=== PATIENT | female | born 1985 | race Caucasian/White ===

== ENCOUNTER 2021-11-13 21:41 | Observation (INO) | payer MEDICAID, SELFPAY ==
[2021-11-13] VITALS (8 sets, daily range): BP systolic 146–154; BP diastolic 84–94; PULSE 81–100; RESP 14–27; TEMP 36–36.6; O2SAT 94–100; BMI 34.9
--- NOTE | 2021-11-13 21:45 | EDS_ITS ---
HPI History of Present Illness Chief Complaint: Unresponsive Narrative Narrative: 36-year-old female presents by EMS. She was at the [place] in [place] and was not feeling right. She apparently had an argument with her boyfriend and the [place] he was at the fair for about 30 minutes prior to calling EMS. She reported to EMS that she was just not feeling right for the last couple of days. She had had some shortness of breath and some chest discomfort. She states to EMS that she just feels off. She reportedly took a Xanax prior to coming out of the stands to see EMS. Patient has a history of seizure disorder and is on unknown medication for this. Patient reported EMS that she took about 53 medications. EMS was transporting her and she was alert, awake, talking and then she went unresponsive. They did not have to bag her and she did appear to have respiratory drive. Patient has a tracheostomy and a PEG tube. Apparently she was at the fair yesterday as well and decided to come back. [facility] Medical History Anomaly of diaphragm Anxiety Arrhythmia Asthma Bacteremia Cerebral atrophy Chronic respiratory failure Depression Drug-seeking behavior Gastrointestinal tube present Gastroparesis GERD (gastroesophageal reflux disease) Mitochondrial complex 3 deficiency Mitochondrial disease MRSA (methicillin resistant Staphylococcus aureus) Neurogenic bladder Opioid dependence Pancreatitis PCOS (polycystic ovarian syndrome) Pulmonary embolism Seizure Tracheostomy in place Allergy/AdvReac Type Severity Reaction Status Date / Time bee venom protein (honey bee) Allergy Anaphylaxis Verified 11/13/21 23:41 propofol Allergy PT UNSURE Verified 11/13/21 23:41 OF REACTION Hemyryd-[id number]-YcR Reductase Allergy PT UNSURE Verified 11/13/21 23:41 Inhibitor OF REACTION valproic acid Allergy PT UNSURE Verified 11/13/21 23:41 OF REACTION vancomycin Allergy Itching Verified 11/13/21 23:41 Social History Smoking Status: Never smoker ROS ROS ED Review of Systems ROS Unobtainable: due to mental condition and due to mental status EXAM Physical Exam Const Vital Signs: 11/13/21 21:42 11/13/21 21:46 11/13/21 21:58 Temperature 97.8 F 97.9 F Temperature Source Temporal Temporal Pulse Rate 89 100 Respiratory Rate 16 20 H Blood Pressure 154/84 H 154/84 H Blood Pressure Mean 107 107 Pulse Ox 94 95 99 Oxygen Delivery Method Room Air Room Air Room Air 11/13/21 21:59 11/13/21 22:14 11/13/21 22:30 Temperature 97.9 F Temperature Source Temporal Pulse Rate 90 83 83 Respiratory Rate 20 H 27 H 16 Blood Pressure 150/87 H 152/91 H 147/88 H Blood Pressure Mean 108 111 107 Pulse Ox 99 100 100 Oxygen Delivery Method Room Air Room Air Room Air 11/13/21 23:00 11/13/21 23:39 11/13/21 23:39 Temperature 96.8 F L 96.8 F L Temperature Source Temporal Temporal Pulse Rate 81 88 82 Respiratory Rate 16 14 14 Blood Pressure 146/87 H 151/94 H 151/94 H Blood Pressure Mean 106 113 113 Pulse Ox 100 100 99 Oxygen Delivery Method Ambu-Bag Room Air Room Air Positive obese Constitutional Narrative: Not responding to voice or sound General Appearance ED: Negative for cyanotic, diaphoretic or pallor Nutritional Appearance: obese HEENT Reports moist mucous membranes HEENT Narrative: Tracheostomy tube noted and is patent Negative for trauma Eyes PERRL and EOMs intact bilaterally General Eye ED: Negative for pale conjunctiva or scleral icterus Chest Wall inspection of chest normal and palpation of chest normal Resp normal respiratory effort and clear to auscultation bilaterally Auscultation: Negative for rales, rhonchi or wheezes Cardio regular rate and regular rhythm GI normal to inspection, nondistended, normoactive bowel sounds GI Narrative: Feeding tube noted in the left upper abdominal wall Neuro Sensorium / Orientation: stuporous Skin no rashes or lesions noted and no wounds General Skin Exam: Negative for jaundice or pallor MDM MDM MDM Narrative Medical decision making narrative: On initial assessment the patient is not responding to voice or touch. Her vital signs are stable. She was initially being bagged through her tracheostomy but we stopped doing this and she was breathing on her own without any distress. Heart rate was 89, respirate 16, temperature 97.8 O2 sat 94% on room air. Breathing was nonlabored. Blood sugar was 101. As I went to put in orders nursing staff states that they were seeing if she would respond to pain and while doing so the patient sat up and took a big gasp of air and was alert and oriented x3. I went back to assess the patient and she is alert and talking. She is very coherent. She states she was at the [place] yesterday [place] [employer] and decided to come back. She states that she has just been feeling off for 3 days. She states that she has had chest pain which has been constant for 3 days and it radiates to the back although this is not a new problem for her. She also complains of left lower quadrant abdominal pain. I did note that she had been seen twice in the last month both on the on the and had CTs of the abdomen pelvis done at [facility] in either both normal. Patient is anticoagulated on Coumadin for history of A. fib. She states she has a history of asthma, anxiety. She also discusses a lot about having a mitochondrial respiratory chain complex. She sees a respiratory specialist and has an appointment for tomorrow. She has a tracheostomy and states she wears a ventilator a couple hours a day and again at night when she sleeping because she gets so tired. She states that she was feeling tired today and requested her to boyfriend bring the wheelchair [place] the [place] but he did not. Given that she sat up out of bed and was not postictal I do not think she had a seizure. Has no sign of head trauma and no history of this. Nobody witnessed any seizure-like activity. She does admit to a history of seizure disorder. I reviewed her medical record and it appears that she does have opioid dependence and has history of malingering. She did request some pain medicine but I told her that since she was just unresponsive I do not think this would be murphy. I did obtain an EKG which on my interpretation shows a sinus rhythm with a ventricular rate of 97 bpm without sign of ischemic change. OH interval 124 ms, QRS duration 88 ms, QTC 487. CBC shows a slight extension of 12.8. Hemoglobin stable at 10.3 and she seems to have a range between 10 and 11 on this. Platelets normal at 273. INR is subtherapeutic and she is on Coumadin, however she has no tachycardia, tachypnea, hypoxia and she is under percent on room air except for some episodes where she is transiently hypoxic. I have low suspicion for PE. She keeps waking up and saying it is going to happen again and then stops medicating. He has no seizure activity. I spoke with her boyfriend who is only been with her for 2 weeks and he states he has not witnessed this. He states I am just getting to know her. Patient had multiple episodes in which she would fall asleep and get hypoxic and then wake up with an emergence reaction and start talking. I told her that I had not found anything abnormal in her blood work. I was able to find her last prescriptions which were dated 09/03/2021 on [facility] and there are multiple ED visits and hospitalizations for multiple problems over the last several months which spanned back years. It does appear that she is on digoxin so I did order a level of this. She appears to be on Vimpat as well as Keppra as well. The Vimpat dosing is 100 mg p.o. twice daily but would apparently have been empty by 10/14/2021 patient also has a prescription for Keppra 750 mg p.o. twice daily. I did not see any other antiepileptic medications. Did not find a documentation of her acting this way. Her parents called and stated that she has had this in the past and that she is not allergic to propofol. Apparently they sedate her for a couple days when she is like this. She can cannot tell me what kind of seizures that she has she states that she has 3 different kinds. I did obtain a CT of the brain and this is negative for acute intracranial findings. Chest x- ray my interpretation shows no acute cardiopulmonary process and radiologist agree. Urine drug screen returned positive for MDMA and benzodiazepines however she is prescribed benzodiazepines. After attempting to admit her to the hospital the hospitalist wanted to get an SOC consult which was obtained and the neurologist stated that there would be no benefit from an EEG because he thinks is behavioral. Recommended treat her symptomatically with benzodiazepines or Haldol. Discussed with the hospitalist who wants her placed on a propofol drip for the evening and she will be placed on the vent. Patient stable on admission. Impression: 1. Altered mental status 2. Dyspnea 3. Abdominal pain 4. MDMA abuse 5. Chronic anemia 6. History of seizure disorder Lab Data Attestation: I reviewed the patient's lab results. Labs: Laboratory Results - last 24 hr 11/13/21 11/13/21 11/13/21 21:47 21:47 21:47 WBC 12.8 H RBC 3.52 L Hgb 10.3 L Hct 32.5 L MCV 92.3 MCH 29.3 MCHC 31.7 L RDW Std Deviation 47.9 H RDW Coeff of Mike 14.1 Plt Count 273 MPV 9.2 Immature Gran % (Auto) 0.700 Neut % (Auto) 78.1 H Lymph % (Auto) 13.5 L Clay % (Auto) 7.0 Eos % (Auto) 0.5 Baso % (Auto) 0.2 Absolute Neuts (auto) 10.0 H Absolute Lymphs (auto) 1.72 Nucleated RBC % 0 PT 14.3 INR 1.1 Sodium 138 Potassium 3.8 Chloride 102 Carbon Dioxide 29.0 Anion Gap 7 BUN 11 Creatinine 0.91 Estim Creat Clear Calc 81.51 Est GFR (MDRD) Af Amer 89 Est GFR (MDRD) Non-Af 74 BUN/Creatinine Ratio 12.1 Glucose 105 Calcium 9.0 Total Bilirubin 0.40 AST 17 ALT 42 Alkaline Phosphatase 104 Troponin I High Sens Total Protein 7.5 Albumin 3.7 Globulin 3.8 Albumin/Globulin Ratio 1.0 Urine Color Urine Clarity Urine pH Ur Specific [place] Urine Protein Urine Glucose (UA) Urine Ketones Urine Occult Blood Urine Nitrite Urine Bilirubin Urine Urobilinogen Ur Leukocyte Esterase Urine RBC Urine WBC Ur Squamous Epith Cells Urine Bacteria Urine Mucus Urine Opiates Screen Urine Methadone Screen Ur Barbiturates Screen Ur Phencyclidine Scrn Ur Amphetamines Screen MDMA (Ecstasy) Screen U Benzodiazepines Scrn Urine Cocaine Screen U Cannabinoids Screen Ur Drug Screen Comment Ethyl Alcohol 11/13/21 11/13/21 11/13/21 21:47 23:05 23:05 WBC RBC Hgb Hct MCV MCH MCHC RDW Std Deviation RDW Coeff of Mike Plt Count MPV Immature Gran % (Auto) Neut % (Auto) Lymph % (Auto) Clay % (Auto) Eos % (Auto) Baso % (Auto) Absolute Neuts (auto) Absolute Lymphs (auto) Nucleated RBC % PT INR Sodium Potassium Chloride Carbon Dioxide Anion Gap BUN Creatinine Estim Creat Clear Calc Est GFR (MDRD) Af Amer Est GFR (MDRD) Non-Af BUN/Creatinine Ratio Glucose Calcium Total Bilirubin AST ALT Alkaline Phosphatase Troponin I High Sens Total Protein Albumin Globulin Albumin/Globulin Ratio Urine Color Yellow Urine Clarity Clear Urine pH 6.0 Ur Specific [place] 1.015 Urine Protein 30 H Urine Glucose (UA) Normal Urine Ketones Negative Urine Occult Blood Negative Urine Nitrite Negative Urine Bilirubin Negative Urine Urobilinogen Normal Ur Leukocyte Esterase 25 H Urine RBC 0 SEEN Urine WBC 0-5 SEEN Ur Squamous Epith Cells 0-5 SEEN Urine Bacteria RARE Urine Mucus 0 SEEN Urine Opiates Screen NEGATIVE Urine Methadone Screen NEGATIVE Ur Barbiturates Screen NEGATIVE Ur Phencyclidine Scrn NEGATIVE Ur Amphetamines Screen NEGATIVE MDMA (Ecstasy) Screen POSITIVE H U Benzodiazepines Scrn POSITIVE H Urine Cocaine Screen NEGATIVE U Cannabinoids Screen NEGATIVE Ur Drug Screen Comment Ethyl Alcohol < 3.0 11/13/21 23:37 WBC RBC Hgb Hct MCV MCH MCHC RDW Std Deviation RDW Coeff of Mike Plt Count MPV Immature Gran % (Auto) Neut % (Auto) Lymph % (Auto) Clay % (Auto) Eos % (Auto) Baso % (Auto) Absolute Neuts (auto) Absolute Lymphs (auto) Nucleated RBC % PT INR Sodium Potassium Chloride Carbon Dioxide Anion Gap BUN Creatinine Estim Creat Clear Calc Est GFR (MDRD) Af Amer Est GFR (MDRD) Non-Af BUN/Creatinine Ratio Glucose Calcium Total Bilirubin AST ALT Alkaline Phosphatase Troponin I High Sens 3 Total Protein Albumin Globulin Albumin/Globulin Ratio Urine Color Urine Clarity Urine pH Ur Specific [place] Urine Protein Urine Glucose (UA) Urine Ketones Urine Occult Blood Urine Nitrite Urine Bilirubin Urine Urobilinogen Ur Leukocyte Esterase Urine RBC Urine WBC Ur Squamous Epith Cells Urine Bacteria Urine Mucus Urine Opiates Screen Urine Methadone Screen Ur Barbiturates Screen Ur Phencyclidine Scrn Ur Amphetamines Screen MDMA (Ecstasy) Screen U Benzodiazepines Scrn Urine Cocaine Screen U Cannabinoids Screen Ur Drug Screen Comment Ethyl Alcohol Radiography Diagnostic Testing: Clinical Impression(s) from Imaging Studies Brain CT 11/13/21 22:26 IMPRESSION: Normal unenhanced CT scan of the brain. Electronically Signed: Faustino Perry DO at 23:00 EDT Reading Location ID and State: [facility] / [place] Tel , Service support , Chest X-Ray 11/13/21 22:39 IMPRESSION: Trace right effusion Electronically Signed: Faustino Perry DO at 22:58 EDT Reading Location ID and State: [facility] / [place] Tel , Service support , Discharge Plan Triage Chief Complaint: Unresponsive ED Provider: Parish Schrader Dx/Rx/DC Orders Primary Care Provider: Care Physician,No Primary Referrals: [facility] Doctor,Out of [Non-Staff] - Disposition Disposition: Home, Self Care
--- NOTE | 2021-11-13 21:45 | CPS ---
pt was assessed and breathing on own on RA satting 97%
--- NOTE | 2021-11-13 21:46 | EKG12_ITS ---
Test Reason : UNRESPONSIVE Blood Pressure : / mmHG Vent. Rate : 097 BPM Atrial Rate : 097 BPM P-R Int : 124 ms QRS Dur : 088 ms QT Int : 384 ms P-R-T Axes : 047 021 009 degrees QTc Int : 487 ms Normal sinus rhythm Prolonged QT Abnormal ECG Confirmed by RAUL SKY, RICHI ([id number]), general expeditor MAURA HODGES ([id number]) on 11/15/2021 10:09:49 AM Referred By: Confirmed By:RICHI CARTER MD
[2021-11-13 21:59] LABS: Absolute Lymphocyte Count 1.72 X10^3/uL (0.83-4.51); Basophil# 0.03 X10^3/uL; Basophil% 0.2 % (0-1); Eosinophil# 0.06 X10^3/uL; Eosinophils% 0.5 % (0-5); Hematocrit 32.5 % (37-47); Hemoglobin 10.3 g/dL (12.0-15.0); Lymphocyte # 1.72 X10^3/ul (0.83-4.51); Lymphocyte % 13.5 % (19-41); Mean Corp Hgb Conc 31.7 g/dL (32-36); Mean Corpuscular Hgb 29.3 pg (27.0-32.0); Mean Corpuscular Volume 92.3 fL (81-99); Mean Platelet Vol. 9.2 fl (6.2-12.0); NRBC Flagged by Analyzer 0 % (0-5); Neutrophil # 9.97 X10^3/uL (2.7-7.7); Neutrophil % 78.1 % (47-70); Platelet Count 273 K/mm3 (150-450); RBC Distribution Width CV 14.1 % (11.6-14.6); RBC Distribution Width SD 47.9 fl (35.1-43.9); Red Blood Count 3.52 M/mm3 (4.2-5.4); White Blood Count 12.8 K/mm3 (4.4-11.0)
[2021-11-13] MEDS: Ondansetron 4 MG/2 ML Vial IV (22:00)
[2021-11-13] MEDS: 0.9% Normal Saline 1,000 ML 999 ML IV (22:01)
[2021-11-13 22:10] LABS: International Normalized Ratio 1.1; Prothrombin Time (Protime)PT. 14.3 SECONDS (11.7-14.9)
[2021-11-13 22:17] LABS: AST(SGOT) 17 U/L (15-37); Alanine Aminotransfer ALT/SGPT 42 U/L (13-56); Albumin, Serum 3.7 g/dL (3.2-5.0); Alkaline Phosphatase 104 U/L (45-117); Anion Gap 7 (5-15); BUN 11 mg/dL (7-18); BUN/Creat Ratio 12.1 RATIO (10-20); Chloride 102 mmol/L (98-107); Creatinine, Serum 0.91 mg/dL (0.55-1.02); EST Glomerular Filtration Rate 74 mL/min (>60); Est Glom Filt Rate - Afr Amer 89 mL/min (>60); Estimated Creatinine Clearance 81.51 ml/min; Globulin 3.8 g/dL (2.2-4.2); Glucose 105 mg/dL (74-106); Potassium 3.8 mmol/L (3.5-5.1); Protein, Total 7.5 g/dL (6.4-8.2); Sodium Level 138 mmol/L (136-145)
--- NOTE | 2021-11-13 22:26 | CT_ITS ---
STUDY: CT BRAIN WITHOUT CONTRAST REASON FOR EXAM: Female, 36 years old. ams RADIATION DOSAGE (If Supplied By Facility): CTDIvol = ( 44.99 ) mGy, DLP = ( 863.60 ) mGycm TECHNIQUE: Transaxial CT imaging of the brain was performed without administration of intravenous contrast material. Individualized dose optimization techniques were used for this CT. COMPARISON: No relevant priors. FINDINGS: Normal soft tissue structures. Normal calvarium. Normal size ventricles and extra-axial spaces for the patient''s age. Normal white matter tracts of the cerebral hemispheres. Normal basal ganglia and thalami. Normal brainstem. Normal cerebellum. There is no intracranial hemorrhage. There are no findings of an acute ischemic infarction. Normal visualized paranasal sinuses. CT/Brain/Head without Contrast IMPRESSION: Normal unenhanced CT scan of the brain. Electronically Signed: Faustino Perry DO at 23:00 EDT ,
--- NOTE | 2021-11-13 22:39 | RAD_ITS ---
STUDY: X-RAY CHEST REASON FOR EXAM: Female, 36 years old. ams TECHNIQUE: Single AP portable view of the chest. COMPARISON: None. FINDINGS: ET tube or tracheostomy tube terminating 6.2 cm from the luis. Left lung is clear. Trace right effusion with elevated right hemidiaphragm. No pneumothorax. There is mild cardiac enlargement. Normal mediastinum and moi. Normal visualized pulmonary arteries. Normal visualized aortic arch and descending thoracic aorta. Normal visualized thoracic spine. Normal visualized ribs, clavicles, and shoulders. There is no demonstrated abnormality of the visualized soft tissue structures of the upper abdomen. RAD/Chest 1 View (Portable) IMPRESSION: Trace right effusion Electronically Signed: Faustino Perry DO at 22:58 EDT ,
[2021-11-13 22:46] LABS: Alcohol, Blood (Medical)-Serum < 3.0 mg/dL
[2021-11-13 23:09] LABS: Mucous, Urine 0 SEEN /hpf (<or=2+); Red Blood Cells-Urine 0 SEEN /hpf (0-5)
[2021-11-13 23:13] LABS: Color, Urine Yellow (Yellow); Glucose, Dipstick Normal (Normal); Ketone-Dipstick Negative (Negative); Leukocyte Esterase-Dipstick 25 /ul (Negative); Nitrite-Dipstick Negative (Negative); Occult Blood-Urine Negative /ul (Negative); Protein-Dipstick 30 mg/dl (Negative); Specific Gravity, Urine 1.015 (1.002-1.030); Urine Bilirubin Dipstick Negative (Negative); Urine Clarity Clear (Clear); Urine Urobilinogen Normal (Normal)
[2021-11-13 23:20] LABS: Bacteria RARE /hpf (None Seen); Squamous Epithelial Cells - UA 0-5 SEEN /hpf (5-10); White Blood Cells 0-5 SEEN /hpf (0-5)
[2021-11-14] VITALS (31 sets, daily range): BP systolic 106–153; BP diastolic 62–106; PULSE 59–97; RESP 13–22; TEMP 35.8–36.1; O2SAT 95–100; BMI 38.0
[2021-11-14] LABS: Amphetamine Urine VISTA NEGATIVE (<1000 ng/mL); Barbiturate Urine VISTA NEGATIVE (< 200 ng/mL); Benzodiazepine Urine VISTA POSITIVE (< 200 ng/mL); Cocaine Urine VISTA NEGATIVE (< 300 ng/mL); Ecstacy Urine VISTA POSITIVE (< 500 ng/mL); Methadone Urine VISTA NEGATIVE (< 300 ng/mL); PCP Urine VISTA NEGATIVE (< 25 ng/mL); THC Urine VISTA NEGATIVE (< 50 ng/mL); Vista UDS pH Range 5
[2021-11-14 00:13] LABS: Troponin-I HS 3 pg/mL (3.0-54.0)
--- NOTE | 2021-11-14 00:16 | TELEMED_ITS ---
SOC Telemed has confirmed receipt of a request for visit. This document confirms receipt of the order initiating the consult. To find the results of the consultation, please view the patient's reports for the scanned Telemed Consult.
[2021-11-14] MEDS: LORazepam 2 MG/ML Syringe 1 MG IV (00:21)
--- NOTE | 2021-11-14 00:57 | ED.RN ---
Since arriving to ER pt has had multiple episodes where she goes unresponsive and apneic. episodes last a couple of minutes then pt wakes up thrashing around and unsure where she is. Redirected to place and staff. Pt then cooperative and answering questions.
[2021-11-14 01:04] LABS: Digoxin Level 0.64 ng/mL (0.80-2.00)
--- NOTE | 2021-11-14 01:25 | PCM.HP.STD ---
HPI - General General Date of Admission: 11/14/21 Date of Service: 11/14/21 Chief Complaint: altered mental status HPI Narrative MARRY BANEGAS, is a 36 F with a significant history of abnormal of diaphragm; atrial fibrillation mitochondrial complex 3 deficiency; pulmonary embolism; seizure; tracheostomy and PEG tube in place who presents to the emergency department with altered mental status. Patient was at the [facility] when she developed a feeling of malaise. She was brought to the emergency department by paramedics. Reportedly en-route to the hospital she became unresponsive and was assisted with breathing via Ambu bagging. At the emergency department patient had many episodes where even between conversations she stopped conversing become unresponsive hypoxic and thrash in bed. At the emergency department her oxygen saturation went to as low as 70s. Patient reported that this has happened in the past and she gets knocked out for a couple of days and then feels better. So at ED when she was out of these hypoxic and unresponsive episodes she requested to be knocked out. Intermittently she also requested to be discharged home. She reported pain at multiple places of her body including chest, abdomen, back. She also reported dizziness Reportedly she is scheduled to see respiratory specialist on 11/14/2021. Of note at home patient use ventilator as needed. She report that she had respiratory failure and after a while she was trached. She reports gastroparesis leading to colectomy and a GJ tube placement. ON LICENSE OF [facility] Medical History Anomaly of diaphragm Anxiety Arrhythmia Asthma Bacteremia Cerebral atrophy Chronic respiratory failure Depression Drug-seeking behavior Gastrointestinal tube present Gastroparesis GERD (gastroesophageal reflux disease) Mitochondrial complex 3 deficiency Mitochondrial disease MRSA (methicillin resistant Staphylococcus aureus) Neurogenic bladder Opioid dependence Pancreatitis PCOS (polycystic ovarian syndrome) Pulmonary embolism Seizure Home Medications albuterol 90 mcg/actuation aerosol inhaler 2 mcg inhalation Q6H PRN PRN Shortness Of Breath 11/14/21 [History Last Taken Unknown] alprazolam 1 mg tablet 1 mg BID 11/14/21 [History Last Taken Unknown] arformoterol 15 mcg/2 mL solution for nebulization (Brovana) 2 ml inhalation BID 11/14/21 [History Last Taken Unknown] ascorbic acid (vitamin C) 250 mg tablet 250 mg PO BID 11/14/21 [History Last Taken Unknown] budesonide 0.5 mg/2 mL suspension for nebulization 0.5 mg inhalation BID 11/14/21 [History Last Taken Unknown] cetirizine 10 mg tablet 10 mg DAILY 11/14/21 [History Last Taken Unknown] citalopram 40 mg tablet 40 mg DAILY 11/14/21 [History Last Taken Unknown] coenzyme Q10 100 mg capsule (Q-Sorb Co Q-10) 100 mg PO TID 11/14/21 [History Last Taken Unknown] colestipol 1 gram tablet 1 g PO BID 11/14/21 [History Last Taken Unknown] cyclobenzaprine 10 mg tablet 10 mg PO TID 11/14/21 [History Last Taken Unknown] dicyclomine 20 mg tablet 20 mg PO TID 11/14/21 [History Last Taken Unknown] digoxin 125 mcg (0.125 mg) tablet 125 mcg PO DAILY 11/14/21 [History Last Taken Unknown] epinephrine 0.3 mg/0.3 mL injection, auto-injector 0.3 mg IM X1 PRN Anaphylaxis 11/14/21 [History Last Taken Unknown] ergocalciferol (vitamin D2) 1,250 mcg (50,000 unit) capsule 50,000 unit DAILY 11/14/21 [History Last Taken Unknown] fludrocortisone 0.1 mg tablet 0.1 mg PO DAILY 11/14/21 [History Last Taken Unknown] furosemide 40 mg tablet (Lasix) 40 mg PO BID PRN Edema 11/14/21 [History Last Taken Unknown] gabapentin 600 mg tablet 600 mg TID 11/14/21 [History Last Taken Unknown] galcanezumab-gnlm 120 mg/mL subcutaneous pen injector (Emgality Pen) 120 mg subcut QMONTH 11/14/21 [History Last Taken Unknown] hydrocortisone 10 mg tablet 10 mg DAILY 11/14/21 [History Last Taken Unknown] hydroxyzine HCl 25 mg tablet 25 mg TID 11/14/21 [History Last Taken Unknown] lacosamide 100 mg tablet 100 mg BID 11/14/21 [History Last Taken Unknown] levetiracetam 750 mg tablet 1,500 mg PO BID 11/14/21 [History Last Taken Unknown] magnesium oxide 400 mg (241.3 mg magnesium) tablet 400 mg DAILY 11/14/21 [History Last Taken Unknown] metformin 1,000 mg tablet 1,000 mg PO BID 11/14/21 [History Last Taken Unknown] methylphenidate HCl 54 mg tablet,extended release 24 hr (Concerta) 54 mg PO DAILY 11/14/21 [History Last Taken Unknown] midodrine 10 mg tablet 10 mg TID 11/14/21 [History Last Taken Unknown] montelukast 10 mg tablet 10 mg DAILY 11/14/21 [History Last Taken Unknown] pantoprazole 40 mg tablet,delayed release 40 mg PO BID 11/14/21 [History Last Taken Unknown] potassium chloride 20 mEq oral packet (Klor-Con) 20 meq PO BID 11/14/21 [History Last Taken Unknown] prochlorperazine maleate 10 mg tablet (Compazine) 10 mg PO Q6H PRN Nausea 11/14/21 [History Last Taken Unknown] sumatriptan succinate 100 mg tablet 100 mg PO DAILY 11/14/21 [History Last Taken Unknown] trazodone 300 mg tablet 300 mg QHS 11/14/21 [History Last Taken Unknown] verapamil 240 mg tablet,extended release 240 mg PO BID 11/14/21 [History Last Taken Unknown] Allergy/AdvReac Type Severity Reaction Status Date / Time bee venom protein (honey bee) Allergy Anaphylaxis Verified 11/13/21 23:41 [id number] Reductase Allergy PT UNSURE Verified 11/13/21 23:41 Inhibitor OF REACTION valproic acid Allergy PT UNSURE Verified 11/13/21 23:41 OF REACTION vancomycin Allergy Itching Verified 11/13/21 23:41 Family History other other (Patient encephalopathic and unable to provide information) Surgical History H/O colectomy Tracheostomy in place Social History Smoking Status: Never smoker ROS ROS Narrative Pertinent positives and pertinent negatives as noted in HPI. All other systems were reviewed and are negative Vital Signs Vital Signs Vital Signs: 11/13/21 21:42 11/13/21 21:46 11/13/21 21:58 Temperature 97.8 F 97.9 F Temperature Source Temporal Temporal Pulse Rate 89 100 Respiratory Rate 16 20 H Blood Pressure 154/84 H 154/84 H Blood Pressure Mean 107 107 Pulse Ox 94 95 99 Oxygen Delivery Method Room Air Room Air Room Air 11/13/21 21:59 11/13/21 22:14 11/13/21 22:30 Temperature 97.9 F Temperature Source Temporal Pulse Rate 90 83 83 Respiratory Rate 20 H 27 H 16 Blood Pressure 150/87 H 152/91 H 147/88 H Blood Pressure Mean 108 111 107 Pulse Ox 99 100 100 Oxygen Delivery Method Room Air Room Air Room Air 11/13/21 23:00 11/13/21 23:39 11/13/21 23:39 Temperature 96.8 F L 96.8 F L Temperature Source Temporal Temporal Pulse Rate 81 88 82 Respiratory Rate 16 14 14 Blood Pressure 146/87 H 151/94 H 151/94 H Blood Pressure Mean 106 113 113 Pulse Ox 100 100 99 Oxygen Delivery Method Ambu-Bag Room Air Room Air 11/14/21 00:00 11/14/21 00:30 11/14/21 01:00 Temperature Temperature Source Pulse Rate 79 79 Respiratory Rate 16 19 H Blood Pressure 106/68 85/66 L Blood Pressure Mean 80 72 Pulse Ox 100 99 Oxygen Delivery Method Room Air Room Air 11/14/21 01:10 Temperature Temperature Source Pulse Rate Respiratory Rate Blood Pressure 153/96 H Blood Pressure Mean 115 Pulse Ox Oxygen Delivery Method Weight Weight: 101.4 kg Body Mass Index (BMI) 34.9 Physical Exam Narrative Physical exam: General: Well-nourished, well-developed. Head: Normocephalic, atraumatic, no tenderness Eyes: Vision is grossly intact. EOMI ENT: Tracheostomy with trach tube in place. Neck: Nontender, full range of motion, no spinal tenderness, deformities, step-off CVS: Regular rate and rhythm. S1-S2 present. No murmur, gallop or rub. Respiratory : clear to auscultation bilaterally, chest wall nontender, no wheezing Abdomen: Soft, PEG tube in place. Nontender, nondistended, normal bowel sounds, no masses : Deferred Back: Nontender, no CVA tenderness, no midline spinal tenderness, deformities, step-offs Extremities: Nontender full range of motion, no trauma Skin: Normal color, no trauma, abrasions Neuro: Alert, oriented, cranial nerves II through XII grossly intact then patient all of a sudden said she could not see; became unresponsive. Later gained responsiveness and was thrashing in bed. Psychiatry: Appears depressed. Results Lab / Micro Data Result Diagrams: 11/13/21 21:47 11/13/21 21:47 Labs: Laboratory Results - last 24 hr 11/13/21 21:47: WBC 12.8 H, RBC 3.52 L, Hgb 10.3 L, Hct 32.5 L, MCV 92.3, MCH 29.3, MCHC 31.7 L, RDW Std Deviation 47.9 H, RDW Coeff of Mike 14.1, Plt Count 273, MPV 9.2, Immature Gran % (Auto) 0.700, Neut % (Auto) 78.1 H, Lymph % (Auto) 13.5 L, [place] % (Auto) 7.0, Eos % (Auto) 0.5, Baso % (Auto) 0.2, Absolute Neuts (auto) 10.0 H, Absolute Lymphs (auto) 1.72, Nucleated RBC % 0 11/13/21 21:47: PT 14.3, INR 1.1 11/13/21 21:47: Sodium 138, Potassium 3.8, Chloride 102, Carbon Dioxide 29.0, Anion Gap 7, BUN 11, Creatinine 0.91, Estim Creat Clear Calc 81.51, Est GFR (MDRD) Af Amer 89, Est GFR (MDRD) Non-Af 74, BUN/Creatinine Ratio 12.1, Glucose 105, Calcium 9.0, Total Bilirubin 0.40, AST 17, ALT 42, Alkaline Phosphatase 104, Total Protein 7.5, Albumin 3.7, Globulin 3.8, Albumin/Globulin Ratio 1.0 11/13/21 21:47: Ethyl Alcohol < 3.0 11/13/21 21:47: Digoxin 0.64 L 11/13/21 23:05: Urine Opiates Screen NEGATIVE, Urine Methadone Screen NEGATIVE, Ur Barbiturates Screen NEGATIVE, Ur Phencyclidine Scrn NEGATIVE, Ur Amphetamines Screen NEGATIVE, MDMA (Ecstasy) Screen POSITIVE H, U Benzodiazepines Scrn POSITIVE H, Urine Cocaine Screen NEGATIVE, U Cannabinoids Screen NEGATIVE, Ur Drug Screen Comment 11/13/21 23:05: Urine Color Yellow, Urine Clarity Clear, Urine pH 6.0, Ur Specific [place] 1.015, Urine Protein 30 H, Urine Glucose (UA) Normal, Urine Ketones Negative, Urine Occult Blood Negative, Urine Nitrite Negative, Urine Bilirubin Negative, Urine Urobilinogen Normal, Ur Leukocyte Esterase 25 H, Urine RBC 0 SEEN, Urine WBC 0-5 SEEN, Ur Squamous Epith Cells 0-5 SEEN, Urine Bacteria RARE, Urine Mucus 0 SEEN 11/13/21 23:37: Troponin I High Sens 3 Micro: Microbiology 11/13/21 21:55 Nasal Secretion SARS-CoV-2 Antigen (Rapid) - Final Radiology Impression Brain CT 11/13/21 22:26 IMPRESSION: Normal unenhanced CT scan of the brain. Electronically Signed: Faustino Perry DO at 23:00 EDT Reading Location ID and State: [facility] / [place] Tel , Service support , Chest X-Ray 11/13/21 22:39 IMPRESSION: Trace right effusion Electronically Signed: Faustino Perry DO at 22:58 EDT [place] Location ID and State: [facility] / [place] Tel , Service support , Assessment & Plan Assessment/Plan (1) Respiratory failure with hypoxia: (2) Toxic encephalopathy: PLAN: Plan Acute on chronic Respiratory failure with hypoxia Chest x-ray image was visualized and independently interpreted. Chest x-ray with raise right kitty-diaphragm and trace right pleural effusion. Nurses reports multiple episodes where patient's became unresponsive; later or thrashing in bed and was hypoxic. Outside hospital examination noted that patient stated that she could not see then became unresponsive and thrashed in bed. Her oxygen saturation dipped to less than 70. At home patient is on ventilator as needed. Ventilator ordered at the ED and continued. Propofol and fentanyl ordered. GI prophylaxis with Pepcid. Admit to the intensive care unit. [employer] consult. Acute encephalopathy Brain CT is unremarkable Urine toxicology was positive for MDMA and benzodiazepine. Of note patient reported taking Xanax. However she denies any use of MDMA. Of note patient is on multiple medications. Cannot rule out false MDMA positivity secondary to patient prescribed medications. Keep npo except meds via Pegtube and flushes. CBC showed a white count of 12.8, likely reactive. With neutrophilia of 78.1% and lymphopenia of 13.5% on presentation. Trend CBC. Acute on chronic anemia Hemoglobin on presentation was 10.3. Review of community records shows that in the past 1 month his hemoglobin has been 10.9, 11.1 and 11.2. Trend CBC. History of seizures Patient was assessed by [facility]y at the emergency department. [facility] neurology does not think that this is a seizure. Per [facility] neurology, rule out serotonin syndrome. [facility] neurology recommended medication for behavior. Propofol ordered. Hypertension Blood pressure is not within goal Verapamil continued Trend blood pressure and adjust blood pressure medications. Metabolic syndrome/PCOS Hold home metformin Patient with euglycemia on presentation. Hold home metformin. Atrial fibrillation Stable Digoxin level low. Digoxin continued. DVT prophylaxis: Lovenox ordered Miscellaneous: On home by mouth and also tube feeding. Keep n.p.o. except meds for now; and Peg tube flushes. Charges/Coding Visit Charges Inpatient E&M: 82763 Init Hosp L3
[2021-11-14] MEDS: Propofol 10MG/Ml 1,000 MG/100 ML Bottle 6.1 MG CONT INF (01:26)
--- NOTE | 2021-11-14 01:53 | ED.RN ---
patient arrives to ED with numerous med lists and discharge paperwork from multiple different hospitals and doctors. pt unsure when asked which is the most accurate. Med list entered to best of this RNs ability.
[2021-11-14 02:11] LABS: CPK Total, Creatine Kinase 45 U/L (26-192); Triglycerides 344 mg/dL
[2021-11-14] MEDS: 0.9% Normal Saline 1,000 ML 75 ML IV (02:32)
[2021-11-14 03:30] LABS: Absolute Lymphocyte Count 1.59 X10^3/uL (0.83-4.51); Basophil# 0.02 X10^3/uL; Basophil% 0.2 % (0-1); Eosinophil# 0.06 X10^3/uL; Eosinophils% 0.5 % (0-5); Hematocrit 29.1 % (37-47); Hemoglobin 9.2 g/dL (12.0-15.0); Lymphocyte # 1.59 X10^3/ul (0.83-4.51); Lymphocyte % 13.8 % (19-41); Mean Corp Hgb Conc 31.6 g/dL (32-36); Mean Corpuscular Hgb 29.1 pg (27.0-32.0); Mean Corpuscular Volume 92.1 fL (81-99); Mean Platelet Vol. 9.2 fl (6.2-12.0); Monocyte# 0.78 X10^3/uL; Monocyte% 6.8 % (0-10); NRBC Flagged by Analyzer 0 % (0-5); Neutrophil % 78.2 % (47-70); Platelet Count 242 K/mm3 (150-450); RBC Distribution Width SD 47.8 fl (35.1-43.9); Red Blood Count 3.16 M/mm3 (4.2-5.4); White Blood Count 11.5 K/mm3 (4.4-11.0)
[2021-11-14] MEDS: 0.9% Saline Lock 10 ML Syringe IV (03:35)
[2021-11-14 03:49] LABS: ALB/GLOB Ratio 0.9 RATIO (0.9-2.4); AST(SGOT) 14 U/L (15-37); Alanine Aminotransfer ALT/SGPT 36 U/L (13-56); Albumin, Serum 3.1 g/dL (3.2-5.0); Alkaline Phosphatase 92 U/L (45-117); Anion Gap 7 (5-15); BUN 11 mg/dL (7-18); BUN/Creat Ratio 15.3 RATIO (10-20); Calcium,Total 8.5 mg/dL (8.5-10.1); Chloride 106 mmol/L (98-107); Creatinine, Serum 0.72 mg/dL (0.55-1.02); EST Glomerular Filtration Rate 96 mL/min (>60); Est Glom Filt Rate - Afr Amer 116 mL/min (>60); Estimated Creatinine Clearance 91.48 ml/min; Globulin 3.5 g/dL (2.2-4.2); Glucose 95 mg/dL (74-106); Potassium 3.8 mmol/L (3.5-5.1); Protein, Total 6.6 g/dL (6.4-8.2); Sodium Level 139 mmol/L (136-145)
[2021-11-14 03:53] LABS: Troponin-I HS 3 pg/mL (3.0-54.0)
[2021-11-14 04:00] LABS: Triglycerides 320 mg/dL
[2021-11-14] MEDS: Dicyclomine 10 MG Capsule 20 MG PO (05:08)
[2021-11-14] MEDS: Propofol 10MG/Ml 1,000 MG/100 ML Bottle 27.4 MG CONT INF (05:08)
[2021-11-14] MEDS: Midodrine HCl 5 MG Tablet 10 MG GT (05:08)
[2021-11-14] MEDS: TITRATION PARAMETER CHANGE 1 EACH IV (05:43)
[2021-11-14 06:44] LABS: Troponin-I HS < 3 pg/mL (3.0-54.0)
[2021-11-14] MEDS: Albuterol 2.5 MG/3 ML VIAL.NEB. INHALATION (06:56)
[2021-11-14] MEDS: Potassium Chloride Oral Tablet 20 MEQ PO (07:33)
[2021-11-14] MEDS: Fludrocortisone Acetate 0.1 MG Tablet PO (07:33)
[2021-11-14] MEDS: Hydrocortisone 10 MG Tablet GT (07:33)
--- NOTE | 2021-11-14 07:41 | CON.PCM.CC_ITS ---
Assessment & Plan Assessment/Plan (1) Respiratory failure with hypoxia: (2) Toxic encephalopathy: PLAN: Plan RECOMMENDATIONS: 1. Discontinue fentanyl and propofol 2. Attempt spontaneous breathing trial 3. Continue baseline medications through PEG 4. Attempt discontinuation of ventilator today 5. Possibly repeat SOC consult if seizure activity noted IMPRESSIONS: 1. Acute on chronic hypoxic respiratory failure Chest x-ray is not suggestive of an etiology. Clinical suspicion for slightly raised right hemidiaphragm secondary to baseline respiratory status. Patient does have documented episodes of hypoxia without seizure activity. SOC consult was not suggestive of epilepsy as an etiology. Toxic respiratory s uppression would be a concern given patient's mitochondrial disorder in the setting of home Xanax. Patient currently is on room air with no significant secretions to suggest an acute infectious etiology. We will attempt to discontinue medications and wake up patient. Some concern for malingering/drug- seeking, but this cannot be confirmed at this time. Patient has been directing medications since presentation and is currently some distance away from primary medical centers. 2. Acute encephalopathy Patient reportedly did take Xanax prior to EMS evaluation. Patient has tested positive for MDMA, which was not reported by the patient. Patient may have a false positive. We will continue to monitor mental status once sedation has been discontinued. 3. Chronic anemia/history of seizures/hypertension/PCOS/A. fib/reported mitochondrial disease Complicates care, management, recovery and prognosis. Likely okay to continue with baseline medications through the PEG tube in my opinion. Patient could have a swallow evaluation pending response to discontinuation of sedation. Could consider dietitian evaluation to see if special diet parameters are necessary. TIME: 32 minutes critical care time spent addressing patient's hypoxic respiratory failure, encephalopathy, review of all data and collaboration with care team HPI Consult Data Date of Consult: 11/14/21 HPI Narrative Reason for Consultation: Respiratory failure HPI Narrative: MARRY BANEGAS is a 36 F, with past medical history listed below, who presents to [facility] by EMS [place] and [place]. Patient reportedly had just had an argument with her boyfriend 30 minutes prior to calling EMS. EMS was reportedly told that she did not feel right for the past couple of days and had some chest discomfort with shortness of breath. Patient reportedly dosed herself with Xanax for anxiety. Patient does have a reported seizure disorder and takes unknown medications. Patient reportedly takes multiple medications was unable to list them. Patient reportedly went unresponsive on transport. Patient reportedly has a PEG tube and a tracheostomy chronically and only uses a ventilator at night with sleep. In the ER, patient was afebrile, hypertensive at 154/84 and saturating well on room air. ER physician noted that the tracheostomy was patent without secretions. Laboratory work-up showed a white blood cell count of 12.8, hemoglobin of 10.3 and platelets of 273. Coagulation studies were within normal limits. Chemistry showed an elevated bicarbonate of 29, but otherwise was unremarkable. Urinalysis was unremarkable. Patient did have benzodiazepines and MDMA positive talk screen. Alcohol was negative. Troponins were negative. CT and chest x-ray were both relatively unremarkable. Patient reportedly had events in the ER and ultimately was placed on a vent, fentanyl and propofol and admitted to the intensive care unit. 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 Patient reportedly is supposed to be on Coumadin but is subtherapeutic. Patient reportedly would pronounce the events were going to happen and then come transiently hypoxic. No seizure activity was noted. A teleneurology consult was obtained and stated that this was not related to seizure activity and thought it was behavioral in nature. On my arrival in the intensive care unit, patient is on minimal vent settings. Patient is on the vent through the tracheostomy and sedated with propofol and fentanyl. Respiratory is not reporting significant secretions. Patient has not been febrile. Patient has been weaned to room air and is saturating well. Patient is not opening her eyes or answering questions, but it is unclear if this is behavioral as she does blink to voice. Review of the medical record states that patient has had these type of episodes in the past. Patient reportedly is placed on propofol for a couple of days and gets over it. Most of patient's medical records are from the [facility] where she is from. [facility] Medical History Anomaly of diaphragm Anxiety Arrhythmia Asthma Bacteremia Cerebral atrophy Chronic respiratory failure Depression Drug-seeking behavior Gastrointestinal tube present Gastroparesis GERD (gastroesophageal reflux disease) Mitochondrial complex 3 deficiency Mitochondrial disease MRSA (methicillin resistant Staphylococcus aureus) Neurogenic bladder Opioid dependence Pancreatitis PCOS (polycystic ovarian syndrome) Pulmonary embolism Seizure Home Medications albuterol 90 mcg/actuation aerosol inhaler 2 mcg inhalation Q6H PRN PRN Short ness Of Breath 11/14/21 [History Last Taken Unknown] alprazolam 1 mg tablet 1 mg BID 11/14/21 [History Last Taken Unknown] arformoterol 15 mcg/2 mL solution for nebulization (Brovana) 2 ml inhalation BID 11/14/21 [History Last Taken Unknown] ascorbic acid (vitamin C) 250 mg tablet 250 mg PO BID 11/14/21 [History Last Taken Unknown] budesonide 0.5 mg/2 mL suspension for nebulization 0.5 mg inhalation BID 11/14/21 [History Last Taken Unknown] cetirizine 10 mg tablet 10 mg DAILY 11/14/21 [History Last Taken Unknown] citalopram 40 mg tablet 40 mg DAILY 11/14/21 [History Last Taken Unknown] coenzyme Q10 100 mg capsule (Q-Sorb Co Q-10) 100 mg PO TID 11/14/21 [History Last Taken Unknown] colestipol 1 gram tablet 1 g PO BID 11/14/21 [History Last Taken Unknown] cyclobenzaprine 10 mg tablet 10 mg PO TID 11/14/21 [History Last Taken Unknown] dicyclomine 20 mg tablet 20 mg PO TID 11/14/21 [History Last Taken Unknown] digoxin 125 mcg (0.125 mg) tablet 125 mcg PO DAILY 11/14/21 [History Last Taken Unknown] epinephrine 0.3 mg/0.3 mL injection, auto-injector 0.3 mg IM X1 PRN Anaphylaxis 11/14/21 [History Last Taken Unknown] ergocalciferol (vitamin D2) 1,250 mcg (50,000 unit) capsule 50,000 unit DAILY 11/14/21 [History Last Taken Unknown] fludrocortisone 0.1 mg tablet 0.1 mg PO DAILY 11/14/21 [History Last Taken Unknown] furosemide 40 mg tablet (Lasix) 40 mg PO BID PRN Edema 11/14/21 [History Last Taken Unknown] gabapentin 600 mg tablet 600 mg TID 11/14/21 [History Last Taken Unknown] galcanezumab-gnlm 120 mg/mL subcutaneous pen injector (Emgality Pen) 120 mg subcut QMONTH 11/14/21 [History Last Taken Unknown] hydrocortisone 10 mg tablet 10 mg DAILY 11/14/21 [History Last Taken Unknown] hydroxyzine HCl 25 mg tablet 25 mg TID 11/14/21 [History Last Taken Unknown] lacosamide 100 mg tablet 100 mg BID 11/14/21 [History Last Taken Unknown] levetiracetam 750 mg tablet 1,500 mg PO BID 11/14/21 [History Last Taken Unknown] magnesium oxide 400 mg (241.3 mg magnesium) tablet 400 mg DAILY 11/14/21 [History Last Taken Unknown] metformin 1,000 mg tablet 1,000 mg PO BID 11/14/21 [History Last Taken Unknown] methylphenidate HCl 54 mg tablet,extended release 24 hr (Concerta) 54 mg PO DAILY 11/14/21 [History Last Taken Unknown] midodrine 10 mg tablet 10 mg TID 11/14/21 [History Last Taken Unknown] montelukast 10 mg tablet 10 mg DAILY 11/14/21 [History Last Taken Unknown] pantoprazole 40 mg tablet,delayed release 40 mg PO BID 11/14/21 [History Last Taken Unknown] potassium chloride 20 mEq oral packet (Klor-Con) 20 meq PO BID 11/14/21 [History Last Taken Unknown] prochlorperazine maleate 10 mg tablet (Compazine) 10 mg PO Q6H PRN Nausea 11/14/21 [History Last Taken Unknown] sumatriptan succinate 100 mg tablet 100 mg PO DAILY 11/14/21 [History Last Taken Unknown] trazodone 300 mg tablet 300 mg QHS 11/14/21 [History Last Taken Unknown] verapamil 240 mg tablet,extended release 240 mg PO BID 11/14/21 [History Last Taken Unknown] Allergy/AdvReac Type Severity Reaction Status Date / Time bee venom protein (honey bee) Allergy Anaphylaxis Verified 11/13/21 23:41 Jkcsldc-MFC-EeC Reductase Allergy PT UNSURE Verified 11/13/21 23:41 Inhibitor OF REACTION valproic acid Allergy PT UNSURE Verified 11/13/21 23:41 OF REACTION vancomycin Allergy Itching Verified 11/13/21 23:41 Family History other Surgical History H/O colectomy Tracheostomy in place Social History Smoking Status: Never smoker ROS ROS Narrative Unable to obtain secondary to sedation Physical Exam Const Constitutional Narrative: Intubated and sedated. Not cooperative with opening eyes. Obese. General Appearance: patient mechanically ventilated; Negative for ill appearing HEENT normocephalic and head/scalp atraumatic Eyes PERRL, EOMs intact bilaterally, conjunctivae normal and no scleral icterus Neck Neck Narrative: Tracheostomy is clean, dry and intact. No surrounding erythema or secretions noted General: trachea midline Chest inspection of chest normal Resp normal respiratory effort and no use of accessory muscles Auscultation: Negative for rales, rhonchi or wheezes Cardio regular rate, regular rhythm, S1 normal heart sound, S2 normal heart sound, no murmurs, no rub and no gallops GI normal to inspection, nondistended, normoactive bowel sounds GI Narrative: PEG is clean, dry and intact. Somewhat limited exam secondary to body habitus Extremity no clubbing, cyanosis or edema Skin no rashes or lesions noted Neuro Sensorium / Orientation: sedated on vent Psych Mood & Affect: flat affect Lab / Micro Data Attestation: I reviewed the patient's lab results. Result Diagrams: 11/14/21 03:20 11/14/21 03:20 Labs: Laboratory Results - last 24 hr 11/13/21 21:47: WBC 12.8 H, RBC 3.52 L, Hgb 10.3 L, Hct 32.5 L, MCV 92.3, MCH 29.3, MCHC 31.7 L, RDW Std Deviation 47.9 H, RDW Coeff of Mike 14.1, Plt Count 273, MPV 9.2, Immature Gran % (Auto) 0.700, Neut % (Auto) 78.1 H, Lymph % (Auto) 13.5 L, [place] % (Auto) 7.0, Eos % (Auto) 0.5, Baso % (Auto) 0.2, Absolute Neuts (auto) 10.0 H, Absolute Lymphs (auto) 1.72, Nucleated RBC % 0 11/13/21 21:47: PT 14.3, INR 1.1 11/13/21 21:47: Sodium 138, Potassium 3.8, Chloride 102, Carbon Dioxide 29.0, Anion Gap 7, BUN 11, Creatinine 0.91, Estim Creat Clear Calc 81.51, Est GFR (MDRD) Af Amer 89, Est GFR (MDRD) Non-Af 74, BUN/Creatinine Ratio 12.1, Glucose 105, Calcium 9.0, Total Bilirubin 0.40, AST 17, ALT 42, Alkaline Phosphatase 104, Total Protein 7.5, Albumin 3.7, Globulin 3.8, Albumin/Globulin Ratio 1.0 11/13/21 21:47: Ethyl Alcohol < 3.0 11/13/21 21:47: Digoxin 0.64 L 11/13/21 21:47: Total Creatine Kinase 45, Triglycerides 344 H 11/13/21 23:05: Urine Opiates Screen NEGATIVE, Urine Methadone Screen NEGATIVE, Ur Barbiturates Screen NEGATIVE, Ur Phencyclidine Scrn NEGATIVE, Ur Amphetamines Screen NEGATIVE, MDMA (Ecstasy) Screen POSITIVE H, U Benzodiazepines Scrn POSITIVE H, Urine Cocaine Screen NEGATIVE, U Cannabinoids Screen NEGATIVE, Ur Drug Screen Comment 11/13/21 23:05: Urine Color Yellow, Urine Clarity Clear, Urine pH 6.0, Ur Specific [place] 1.015, Urine Protein 30 H, Urine Glucose (UA) Normal, Urine Ketones Negative, Urine Occult Blood Negative, Urine Nitrite Negative, Urine [place] irubin Negative, Urine Urobilinogen Normal, Ur Leukocyte Esterase 25 H, Urine RBC 0 SEEN, Urine WBC 0-5 SEEN, Ur Squamous Epith Cells 0-5 SEEN, Urine Bacteria RARE, Urine Mucus 0 SEEN 11/13/21 23:37: Troponin I High Sens 3 11/14/21 03:20: WBC 11.5 H, RBC 3.16 L, Hgb 9.2 L, Hct 29.1 L, MCV 92.1, MCH 29.1, MCHC 31.6 L, RDW Std Deviation 47.8 H, RDW Coeff of Mike 14.0, Plt Count 242, MPV 9.2, Immature Gran % (Auto) 0.500, Neut % (Auto) 78.2 H, Lymph % (Auto) 13.8 L, [place] % (Auto) 6.8, Eos % (Auto) 0.5, Baso % (Auto) 0.2, Absolute Neuts (auto) 9.0 H, Absolute Lymphs (auto) 1.59, Nucleated RBC % 0 11/14/21 03:20: Sodium 139, Potassium 3.8, Chloride 106, Carbon Dioxide 26.0, Anion Gap 7, BUN 11, Creatinine 0.72, Estim Creat Clear Calc 91.48, Est GFR (MDRD) Af Amer 116, Est GFR (MDRD) Non-Af 96, BUN/Creatinine Ratio 15.3, Glucose 95, Calcium 8.5, Total Bilirubin 0.30, AST 14 L, ALT 36, Alkaline Phosphatase 92, Total Protein 6.6, Albumin 3.1 L, Globulin 3.5, Albumin/Globulin Ratio 0.9 11/14/21 03:20: Triglycerides 320 H 11/14/21 03:20: Troponin I High Sens 3 11/14/21 06:10: Troponin I High Sens < 3 L Micro: Microbiology 11/13/21 21:55 Nasal Secretion SARS-CoV-2 Antigen (Rapid) - Final Radiology Impression Brain CT 11/13/21 22:26 IMPRESSION: Normal unenhanced CT scan of the brain. Electronically Signed: Faustino Perry DO at 23:00 EDT Reading Location ID and State: [facility] / [place] Tel , Service support , Chest X-Ray 11/13/21 22:39 IMPRESSION: Trace right effusion Electronically Signed: Faustino Perry DO at 22:58 EDT , Charges/Coding Procedures Hospitalists Procedures: [id number] Critial Care 1st Hr
[2021-11-14] MEDS: Loratadine 10 MG Tablet GT (09:53)
[2021-11-14] MEDS: Verapamil SR 240 MG Tablet PO (09:53)
[2021-11-14] MEDS: Digoxin 125 MCG Tablet PO (09:54)
[2021-11-14] MEDS: Enoxaparin 40 MG/0.4 ML Syringe SC (09:54)
[2021-11-14] MEDS: Colestipol 1 GM TABLET PO (09:54)
[2021-11-14] MEDS: levETIRAcetam 750 MG Tablet 1500 MG PO (09:54)
[2021-11-14] MEDS: Montelukast 10 MG Tablet GT (09:55)
[2021-11-14] MEDS: Ascorbic Acid 500 MG Tablet 250 MG PO (09:55)
[2021-11-14] MEDS: Pantoprazole Sodium 40 MG Tablet PO (09:55)
[2021-11-14] MEDS: Magnesium Chloride 64 MG Delay Rel.Tablet 128 MG PO (09:55)
[2021-11-14] MEDS: Lacosamide 100 MG Tablet PO (10:28)
--- NOTE | 2021-11-14 11:30 | CASEMGMT ---
RN SHELLEY Face to Face with patient for initial transition planning/care coordination assessment. RN CM introduced self and role at [facility]. Patient lying in bed, alert and anxious, boyfriend at bedside. Patient willing to participate in assessment and is able to answer all questions appropriately. Care providers, pharmacy, and demographics verified. Patient wishes to discharge home, patient states she is active with [facility] for SN. Patient states that she need to get home to feed her dog and guinea pig. Patient states that no one is helping her get better and that the doctors need to give her the IV meds that help her relax so she can be put on the vent and sleep, so her body can rest. Patient states that the doctors just need to talk to her Friend Sidra because Sidra know what she needs to get better. Sidra number is [phone]. Patient states she has no further needs or concerns at this time. CM to follow for discharge planning needs that may arise. PCP: Dena Hyde Specialists: Patient states she sees several specialist Preferred Pharmacy: [facility] at discharge. Insurance: [facility] Prescription Benefit: yes Living Will/HPOA: none LNOK: mother, father Living Arrangements: patient states she lives with her friend Sidra in a mobile home with no steps. Patient states she is independent at home. Transportation: self, parents DME/HHC: Patient states she has shower chair, walker, wheelchair, wlaker, nebulizer, vent at , home oxygen through [employer], suction machine. Patient states she is active with [facility] for nursing. CM to update C regarding hospitalization. Disposition Plan: Patient to discharge home with resumption of HHC, family support, and follow-up plans in place. Marlin BUSTOS, RN, CM
--- NOTE | 2021-11-14 11:45 | CASEMGMT ---
Patient states she would like to go home with resumption of HHC with [facility] [place] and declines list of other C agency. RN CM to coordinate sending clinical and discharge instructions to [facility] [place] when available. CM will continue to follow this patient and plan for a safe discharge.
--- NOTE | 2021-11-14 13:51 | DCINST_ITS ---
Discharge Instructions Diet Discharge Diet: Low fat / Low cholesterol and Carb Control Diet Activity Discharge Activity: Return to Normal Activity Dressing / Incision Call your doctor if you observe: Fever of 101 or Higher, Shortness of breath, Dizziness, Fainting spells, Swelling in the ankles, Chest pain and Increased palpitations (irregular heartbeat) Follow Up Care Test Results: Test results from this visit will be discussed in further detail at your follow- up appointment, if applicable. Discharge Plan Admission Admit Date/Time: 11/14/21 01:11 Attending Provider: Papa Rey Primary Care Provider: Care Physician,No Primary Consulting Providers: Layton Cortez ; Ross Gallardo Discharge Orders/Prescriptions Prescriptions: Continued gabapentin 600 mg tablet 600 mg TID Label Comments: TAKE 1 TABLET BY MOUTH THREE TIMES DAILY FOR 180 DAYS citalopram 40 mg tablet 40 mg DAILY Label Comments: TAKE 1 TABLET BY MOUTH ONCE DAILY IN THE MORNING alprazolam 1 mg tablet 1 mg BID Label Comments: TAKE 1 TABLET BY MOUTH ONCE DAILY NEEDED sumatriptan succinate 100 mg tablet 100 mg PO DAILY Label Comments: TAKE 1 TABLET BY MOUTH FOR MIGRAINE HEADACHE, MAY REPEAT 1 TABLET IN 2 TO 3 HOURS IF NEEDED methylphenidate HCl [Concerta] 54 mg tablet extended release 24hr 54 mg PO DAILY Label Comments: 1 tablet by mouth every morning magnesium oxide 400 mg (241.3 mg magnesium) tablet 400 mg DAILY Label Comments: TAKE 1 TABLET BY MOUTH ONCE DAILY trazodone 300 mg tablet 300 mg QHS Label Comments: TAKE 1 TABLET BY MOUTH ONCE DAILY AT NIGHT DIRECTED montelukast 10 mg tablet 10 mg DAILY Label Comments: TAKE 1 TABLET BY MOUTH ONCE DAILY hydroxyzine HCl 25 mg tablet 25 mg TID Label Comments: TAKE 1 TABLET BY MOUTH THREE TIMES DAILY DIRECTED levetiracetam 750 mg tablet 1,500 mg PO BID Label Comments: TAKE 2 TABLETS BY MOUTH TWICE DAILY ergocalciferol (vitamin D2) 1,250 mcg (50,000 unit) capsule 50,000 unit DAILY Label Comments: TAKE 1 CAPSULE BY MOUTH ONCE A WEEK hydrocortisone 10 mg tablet 10 mg DAILY Label Comments: TAKE 1 TABLET BY MOUTH ONCE DAILY epinephrine 0.3 mg/0.3 mL auto-injector 0.3 mg IM X1 PRN (Reason: Anaphylaxis) Label Comments: INJECT 0.3 ML INTO THE MUSCLE ONCE FOR ONE DOSE DIRECTED FOR ALLERGIC REACTION colestipol 1 gram tablet 1 g PO BID Label Comments: TAKE 1 TABLET BY MOUTH TWICE DAILY lacosamide 100 mg tablet 100 mg BID Label Comments: TAKE 1 TABLET BY MOUTH TWICE DAILY cetirizine 10 mg tablet 10 mg DAILY Label Comments: TAKE 1 TABLET BY MOUTH NIGHTLY NEEDED FOR ALLERGIES dicyclomine 20 mg Tablet 20 mg PO TID metformin 1,000 mg Tablet 1,000 mg PO BID verapamil 240 mg tablet extended release 240 mg PO BID Label Comments: TAKE 1 TABLET BY MOUTH TWICE DAILY midodrine 10 mg tablet 10 mg TID Label Comments: TAKE 1 TABLET BY MOUTH THREE TIMES DAILY coenzyme Q10 [Q-Sorb Co Q-10] 100 mg capsule 100 mg PO TID Label Comments: TAKE 1 CAPSULE BY MOUTH THREE TIMES DAILY furosemide [Lasix] 40 mg Tablet 40 mg PO BID PRN (Reason: Edema) prochlorperazine maleate [Compazine] 10 mg Tablet 10 mg PO Q6H PRN (Reason: Nausea) potassium chloride [Klor-Con] 20 mEq Packet 20 meq PO BID digoxin 125 mcg (0.125 mg) Tablet 125 mcg PO DAILY fludrocortisone 0.1 mg Tablet 0.1 mg PO DAILY Emgality Pen 120 mg/mL Pen Injector 120 mg SUBCUT QMONTH cyclobenzaprine 10 mg Tablet 10 mg PO TID ascorbic acid (vitamin C) 250 mg Tablet 250 mg PO BID budesonide 0.5 mg/2 mL Suspension For Nebulization 0.5 mg INHALATION BID albuterol 90 mcg/actuation Aerosol 2 mcg INHALATION Q6H PRN PRN (Reason: Shortness Of Breath) arformoterol [Brovana] 15 mcg/2 mL Solution For Nebulization 2 ml INHALATION BID pantoprazole 40 mg Tablet,Delayed Release (Dr/Ec) 40 mg PO BID Referrals / Follow Up: Care Physician,No Primary [Primary Care Provider] - [facility] Doctor,Out of [Non-Staff] - Disposition Disposition (needs filled in before D/C Order can be placed): Home, Self Care
--- NOTE | 2021-11-14 13:54 | DS.PCM_ITS ---
Providers Date of Admission: 11/14/21 Primary Care Physician: [facility] Phys Consultations 11/14/21 02:15 Consult: Double Surface Operator / Pulmonary Medicine Routine Consulting Provider: Layton Cortez Reason for Consult: Acute on chronic hypoxemic respiratory Failure; toxic en cephalopathy EMERGENT Consult: No MD Notified: Yes Date Notified: 11/14/21 Time Notified: 01:24 Method of Notification: Text Reason For Visit: ACUTE ON CHRONIC RESPIRATORY FAILURE Diagnosis Discharge Diagnosis (1) Respiratory failure with hypoxia: Status: Acute Code(s): J96.91 - Respiratory failure, unspecified with hypoxia (2) Toxic encephalopathy: Status: Acute Code(s): G92.9 - Unspecified toxic encephalopathy Medications at Discharge Home Medications albuterol 90 mcg/actuation aerosol inhaler 2 mcg inhalation Q6H PRN PRN Shortness Of Breath 11/14/21 alprazolam 1 mg tablet 1 mg BID 11/14/21 arformoterol 15 mcg/2 mL solution for nebulization (Brovana) 2 ml inhalation BID 11/14/21 ascorbic acid (vitamin C) 250 mg tablet 250 mg PO BID 11/14/21 budesonide 0.5 mg/2 mL suspension for nebulization 0.5 mg inhalation BID 11/14/21 cetirizine 10 mg tablet 10 mg DAILY 11/14/21 citalopram 40 mg tablet 40 mg DAILY 11/14/21 coenzyme Q10 100 mg capsule (Q-Sorb Co Q-10) 100 mg PO TID 11/14/21 colestipol 1 gram tablet 1 g PO BID 11/14/21 cyclobenzaprine 10 mg tablet 10 mg PO TID 11/14/21 dicyclomine 20 mg tablet 20 mg PO TID 11/14/21 digoxin 125 mcg (0.125 mg) tablet 125 mcg PO DAILY 11/14/21 epinephrine 0.3 mg/0.3 mL injection, auto-injector 0.3 mg IM X1 PRN Anaphylaxis 11/14/21 ergocalciferol (vitamin D2) 1,250 mcg (50,000 unit) capsule 50,000 unit DAILY 11/14/21 fludrocortisone 0.1 mg tablet 0.1 mg PO DAILY 11/14/21 furosemide 40 mg tablet (Lasix) 40 mg PO BID PRN Edema 11/14/21 gabapentin 600 mg tablet 600 mg TID 11/14/21 galcanezumab-gnlm 120 mg/mL subcutaneous pen injector (Emgality Pen) 120 mg subcut QMONTH 11/14/21 hydrocortisone 10 mg tablet 10 mg DAILY 11/14/21 hydroxyzine HCl 25 mg tablet 25 mg TID 11/14/21 lacosamide 100 mg tablet 100 mg BID 11/14/21 levetiracetam 750 mg tablet 1,500 mg PO BID 11/14/21 magnesium oxide 400 mg (241.3 mg magnesium) tablet 400 mg DAILY 11/14/21 metformin 1,000 mg tablet 1,000 mg PO BID 11/14/21 methylphenidate HCl 54 mg tablet,extended release 24 hr (Concerta) 54 mg PO DAILY 11/14/21 midodrine 10 mg tablet 10 mg TID 11/14/21 montelukast 10 mg tablet 10 mg DAILY 11/14/21 pantoprazole 40 mg tablet,delayed release 40 mg PO BID 11/14/21 potassium chloride 20 mEq oral packet (Klor-Con) 20 meq PO BID 11/14/21 prochlorperazine maleate 10 mg tablet (Compazine) 10 mg PO Q6H PRN Nausea 11/14/21 sumatriptan succinate 100 mg tablet 100 mg PO DAILY 11/14/21 trazodone 300 mg tablet 300 mg QHS 11/14/21 verapamil 240 mg tablet,extended release 240 mg PO BID 11/14/21 Hospital Course Operations None Procedures Intubation Summary of Care Provided Minutes Spent on Discharge: 45 Hospital Course: Per HPI: MARRY BANEGAS, is a 36 F with a significant history of abnormal of diaphragm; atrial fibrillation mitochondrial complex 3 deficiency; pulmonary embolism; seizure; tracheostomy and PEG tube in place? who presents to the emergency department with altered mental status. Patient was at the [facility] when she developed a feeling of malaise.? She was brought to the emergency department by paramedics.? Reportedly en-route to the hospital she became unresponsive and was assisted with breathing via Ambu bagging. At the emergency department patient had many episodes where even between conversations she stopped conversing become unresponsive hypoxic and thrash in bed.? At the emergency department her oxygen saturation went to as low as 70s.? Patient reported that this has happened in the past and she gets knocked out for a couple of days and then feels better.? So at ED when she was out of these hypoxic and unresponsive episodes she requested to be knocked out.? Intermittently she also requested to be discharged home.? She reported pain at multiple places of her body including chest, abdomen, back.? She also reported dizziness Reportedly she is scheduled to see respiratory specialist on 11/14/2021. Of note at home patient use ventilator as needed.? She report that she had respiratory failure and after a while she was trached.? She reports gastroparesis leading to colectomy and a GJ tube placement. Hospital Course: 1. Acute on chronic hypoxic respiratory failure with toxic encephalopathy? 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 She is also intermittently hypoxic. The ED doc had discussions with her boyfriend as well as her parents who stated that whenever she gets like this they usually intubated for a few days. She was intubated last night and e xtubated this morning she is remained on room air. [facility] neurology was consulted for the possibility of a neurological issue versus a CVA, and their evaluation felt this was likely a behavioral. I discussed the case today with the paid internship who felt that she was stable to go home, she has been extubated since this morning and has not been hypoxic. She is complaining of a headache but otherwise has no history or her lab work derangements. I discussed with her that given that she has stable vital signs and stable lab work that she can treat her headache at home with [id number] medications. I discussed with her the plan for discharge today and she expressed understanding of the risks and benefits of going home and would like to go home today. I recommended she follow-up with her PCP in 3 to 5 days. She did have clinical improvement faster than expected. 2. Metabolic syndrome, PCOS, hypertension, history of seizures, chronic anemia, A. fib, reported mitochondrial disease are all chronic medical conditions which complicate her care. Her home medications were continued where appropriate Physical Exam Narrative General: Alert, Oriented x3, Cooperative, No apparent distress HEENT: Atraumatic, PERRLA, EOMI, Normocephalic Oral: Moist Mucosa Neck: Supple, No JVD Lungs: Clear to auscultation, Normal air movement, No rhonchi, No wheeze, No rales, tracheostomy in place Cardiovascular: Regular rate, Regular Rhythm, Normal S1, Normal S2, No murmurs Abdomen: Soft, Non Tender, Non-Distended, No Hepato-splenomegaly, PEG tube in place Extremities: No edema, Capillary Refill Less than 3 Seconds Skin: No rashes, No breakdown Musculoskeletal: No Tenderness to Palpation of Joints or Extremities Neurological: Cranial nerves II-XII grossly intact, Motor Exam 5/5 strength throughout, Sensory exam intact to light touch and pain Psych/Mental Status: Normal Affect, Appropriate Weight / BMI Weight Weight: 221 lb 5.506 oz Body Mass Index (BMI) 38.0 ABG / Lab / Microbiology Data Result Diagrams: 11/14/21 03:20 11/14/21 03:20 Laboratory: Laboratory Results - last 24 hr 11/13/21 21:47: WBC 12.8 H, RBC 3.52 L, Hgb 10.3 L, Hct 32.5 L, MCV 92.3, MCH 29.3, MCHC 31.7 L, RDW Std Deviation 47.9 H, RDW Coeff of Mike 14.1, Plt Count 273, MPV 9.2, Immature Gran % (Auto) 0.700, Neut % (Auto) 78.1 H, Lymph % (Auto) 13.5 L, [place] % (Auto) 7.0, Eos % (Auto) 0.5, Baso % (Auto) 0.2, Absolute Neuts (auto) 10.0 H, Absolute Lymphs (auto) 1.72, Nucleated RBC % 0 11/13/21 21:47: PT 14.3, INR 1.1 11/13/21 21:47: Sodium 138, Potassium 3.8, Chloride 102, Carbon Dioxide 29.0, Anion Gap 7, BUN 11, Creatinine 0.91, Estim Creat Clear Calc 81.51, Est GFR ( MDRD) Af Amer 89, Est GFR (MDRD) Non-Af 74, BUN/Creatinine Ratio 12.1, Glucose 105, Calcium 9.0, Total Bilirubin 0.40, AST 17, ALT 42, Alkaline Phosphatase 104, Total Protein 7.5, Albumin 3.7, Globulin 3.8, Albumin/Globulin Ratio 1.0 11/13/21 21:47: Ethyl Alcohol < 3.0 11/13/21 21:47: Digoxin 0.64 L 11/13/21 21:47: Total Creatine Kinase 45, Triglycerides 344 H 11/13/21 23:05: Urine Opiates Screen NEGATIVE, Urine Methadone Screen NEGATIVE, Ur Barbiturates Screen NEGATIVE, Ur Phencyclidine Scrn NEGATIVE, Ur Amphetamines Screen NEGATIVE, MDMA (Ecstasy) Screen POSITIVE H, U Benzodiazepines Scrn POSITIVE H, Urine Cocaine Screen NEGATIVE, U Cannabinoids Screen NEGATIVE, Ur Drug Screen Comment 11/13/21 23:05: Urine Color Yellow, Urine Clarity Clear, Urine pH 6.0, Ur Specific [place] 1.015, Urine Protein 30 H, Urine Glucose (UA) Normal, Urine Ketones Negative, Urine Occult Blood Negative, Urine Nitrite Negative, Urine Bilirubin Negative, Urine Urobilinogen Normal, Ur Leukocyte Esterase 25 H, Urine RBC 0 SEEN, Urine WBC 0-5 SEEN, Ur Squamous Epith Cells 0-5 SEEN, Urine Bacteria RARE, Urine Mucus 0 SEEN 11/13/21 23:37: Troponin I High Sens 3 11/14/21 03:20: WBC 11.5 H, RBC 3.16 L, Hgb 9.2 L, Hct 29.1 L, MCV 92.1, MCH 29.1, MCHC 31.6 L, RDW Std Deviation 47.8 H, RDW Coeff of Mike 14.0, Plt Count 242, MPV 9.2, Immature Gran % (Auto) 0.500, Neut % (Auto) 78.2 H, Lymph % (Auto) 13.8 L, [place] % (Auto) 6.8, Eos % (Auto) 0.5, Baso % (Auto) 0.2, Absolute Neuts (auto) 9.0 H, Absolute Lymphs (auto) 1.59, Nucleated RBC % 0 11/14/21 03:20: Sodium 139, Potassium 3.8, Chloride 106, Carbon Dioxide 26.0, Anion Gap 7, BUN 11, Creatinine 0.72, Estim Creat Clear Calc 91.48, Est GFR (MDRD) Af Amer 116, Est GFR (MDRD) Non-Af 96, BUN/Creatinine Ratio 15.3, Glucose 95, Calcium 8.5, Total Bilirubin 0.30, AST 14 L, ALT 36, Alkaline Phosphatase 92, Total Protein 6.6, Albumin 3.1 L, Globulin 3.5, Albumin/Globulin Ratio 0.9 11/14/21 03:20: Triglycerides 320 H 11/14/21 03:20: Troponin I High Sens 3 11/14/21 06:10: Troponin I High Sens < 3 L Microbiology: Microbiology 11/13/21 21:55 Nasal Secretion SARS-CoV-2 Antigen (Rapid) - Final Radiography Diagnostic Testing: Radiology Impression Brain CT 11/13/21 22:26 IMPRESSION: Normal unenhanced CT scan of the brain. Electronically Signed: Faustino Perry DO at 23:00 EDT Reading Location ID and State: [address] [place] [address] Tel , Service support , Chest X-Ray 11/13/21 22:39 IMPRESSION: Trace right effusion Electronically Signed: Faustino Perry DO at 22:58 EDT Reading Location ID and State: [address] [place] [address] Tel , Service support , D/C Instructions Discharge Diet: Low fat / Low cholesterol and Carb Control Diet Call your doctor if you observe: Fever of 101 or Higher, Shortness of breath, Dizziness, Fainting spells, Swelling in the ankles, Chest pain and Increased palpitations (irregular heartbeat) Meaningful Use Info Meaningful Use Diagnoses (Choose all that apply): None applicable Discharge Plan Admission Admit Date/Time: 11/14/21 01:11 Attending Provider: Papa Rey Primary Care Provider: Care Physician,No Primary Consulting Providers: Layton Cortez ; Ross Gallardo Discharge Orders/Prescriptions Prescriptions: Continued gabapentin 600 mg tablet 600 mg TID Label Comments: TAKE 1 TABLET BY MOUTH THREE TIMES DAILY FOR 180 DAYS citalopram 40 mg tablet 40 mg DAILY Label Comments: TAKE 1 TABLET BY MOUTH ONCE DAILY IN THE MORNING alprazolam 1 mg tablet 1 mg BID Label Comments: TAKE 1 TABLET BY MOUTH ONCE DAILY NEEDED sumatriptan succinate 100 mg tablet 100 mg PO DAILY Label Comments: TAKE 1 TABLET BY MOUTH FOR MIGRAINE HEADACHE, MAY REPEAT 1 TABLET IN 2 TO 3 HOURS IF NEEDED methylphenidate HCl [Concerta] 54 mg tablet extended release 24hr 54 mg PO DAILY Label Comments: 1 tablet by mouth every morning magnesium oxide 400 mg (241.3 mg magnesium) tablet 400 mg DAILY Label Comments: TAKE 1 TABLET BY MOUTH ONCE DAILY trazodone 300 mg tablet 300 mg QHS Label Comments: TAKE 1 TABLET BY MOUTH ONCE DAILY AT NIGHT DIRECTED montelukast 10 mg tablet 10 mg DAILY Label Comments: TAKE 1 TABLET BY MOUTH ONCE DAILY hydroxyzine HCl 25 mg tablet 25 mg TID Label Comments: TAKE 1 TABLET BY MOUTH THREE TIMES DAILY DIRECTED levetiracetam 750 mg tablet 1,500 mg PO BID Label Comments: TAKE 2 TABLETS BY MOUTH TWICE DAILY ergocalciferol (vitamin D2) 1,250 mcg (50,000 unit) capsule 50,000 unit DAILY Label Comments: TAKE 1 CAPSULE BY MOUTH ONCE A WEEK hydrocortisone 10 mg tablet 10 mg DAILY Label Comments: TAKE 1 TABLET BY MOUTH ONCE DAILY epinephrine 0.3 mg/0.3 mL auto-injector 0.3 mg IM X1 PRN (Reason: Anaphylaxis) Label Comments: INJECT 0.3 ML INTO THE MUSCLE ONCE FOR ONE DOSE DIRECTED FOR ALLERGIC REACTION colestipol 1 gram tablet 1 g PO BID Label Comments: TAKE 1 TABLET BY MOUTH TWICE DAILY lacosamide 100 mg tablet 100 mg BID Label Comments: TAKE 1 TABLET BY MOUTH TWICE DAILY cetirizine 10 mg tablet 10 mg DAILY Label Comments: TAKE 1 TABLET BY MOUTH NIGHTLY NEEDED FOR ALLERGIES dicyclomine 20 mg Tablet 20 mg PO TID metformin 1,000 mg Tablet 1,000 mg PO BID verapamil 240 mg tablet extended release 240 mg PO BID Label Comments: TAKE 1 TABLET BY MOUTH TWICE DAILY midodrine 10 mg tablet 10 mg TID Label Comments: TAKE 1 TABLET BY MOUTH THREE TIMES DAILY coenzyme Q10 [Q-Sorb Co Q-10] 100 mg capsule 100 mg PO TID Label Comments: TAKE 1 CAPSULE BY MOUTH THREE TIMES DAILY furosemide [Lasix] 40 mg Tablet 40 mg PO BID PRN (Reason: Edema) prochlorperazine maleate [Compazine] 10 mg Tablet 10 mg PO Q6H PRN (Reason: Nausea) potassium chloride [Klor-Con] 20 mEq Packet 20 meq PO BID digoxin 125 mcg (0.125 mg) Tablet 125 mcg PO DAILY fludrocortisone 0.1 mg Tablet 0.1 mg PO DAILY Emgality Pen 120 mg/mL Pen Injector 120 mg SUBCUT QMONTH cyclobenzaprine 10 mg Tablet 10 mg PO TID ascorbic acid (vitamin C) 250 mg Tablet 250 mg PO BID budesonide 0.5 mg/2 mL Suspension For Nebulization 0.5 mg INHALATION BID albuterol 90 mcg/actuation Aerosol 2 mcg INHALATION Q6H PRN PRN (Reason: Shortness Of Breath) arformoterol [Brovana] 15 mcg/2 mL Solution For Nebulization 2 ml INHALATION BID pantoprazole 40 mg Tablet,Delayed Release (Dr/Ec) 40 mg PO BID Referrals / Follow Up: Care Physician,No Primary [Primary Care Provider] - [facility] Doctor,Out of [Non-Staff] - Disposition Disposition (needs filled in before D/C Order can be placed): Home, Self Care Charges/Coding Visit Charges Inpatient E&M: 40373 Disch Hosp
--- NOTE | 2021-11-14 14:49 | CASEMGMT ---
KRZYSZTOF ROSA sent clinical information and discharge instructions to [facility] via [facility]
[2021-11-14 17:27] LABS: Bedside Glucose 104 mg/dL (74-106)
== END 2021-11-14 15:00 | disposition home or self-care (01) | DRG 133 ==
LOC: ED 22:53 → ICU 11-14 02:25
PROVIDERS: Admitting Provider Hospitalist; Emergency Provider Student in an Organized Health Care Education/Training Program; Visit Provider Family Medicine
DX: J96.21 Acute and chronic respiratory failure with hypoxia (principal); Z93.0 Tracheostomy status; Z93.1 Gastrostomy status; F16.10 Hallucinogen abuse, uncomplicated; F11.20 Opioid dependence, uncomplicated; I48.91 Unspecified atrial fibrillation; G40.909 Epilepsy, unspecified, not intractable, without status epilepticus; E88.40 Mitochondrial metabolism disorder, unspecified; G92.9 Unspecified toxic encephalopathy; D64.9 Anemia, unspecified; I10 Essential (primary) hypertension; E28.2 Polycystic ovarian syndrome; Z90.49 Acquired absence of other specified parts of digestive tract; Z76.5 Malingerer [conscious simulation]; Z79.01 Long term (current) use of anticoagulants; Z79.899 Other long term (current) drug therapy; F41.9 Anxiety disorder, unspecified; G93.40 Encephalopathy, unspecified
CPT/HCPCS: J3010; 70450; 71045; 80053; 80162; 80307; 81001; 82077; 82550; 82962; 84478; 84484; 85025; 85610; 87811; 93005; 94002; 94640; 96361; 96365; 96366; 96368; 96372; 96375; 97802; 99218; 99285; J7030; A4216; G0378; J2405